=== PATIENT | female | born 2005 | race African-American/Black ===

== ENCOUNTER 2024-08-05 19:00 | Inpatient (IN) | payer OTHER ==
[2024-08-05 19:10] VITALS: BMI 34.8
[2024-08-05 21:00] LABS: BASOPHILS # 0.05 x10^3/uL (0.01-0.08); EOSINOPHIL % 2.9 % (0.7-5.8); EOSINOPHILS # 0.13 x10^3/uL (0.04-0.36); HEMATOCRIT 34.8 % (34.1-44.9); HEMOGLOBIN 11.3 g/dL (11.2-15.7); MCHC 32.5 g/dl (32.2-35.5); MEAN PLT VOLUME 12.1 fl (9.4-12.3); MONOCYTE # 0.46 x10^3/uL (0.24-0.86); MONOCYTE % 10.2 % (4.7-12.5); PLATELET COUNT 253 x10^3/uL (182-369); RDW 14.9 % (12.0-16.2)
[2024-08-05 21:03] LABS: EPI CELLS >36 /uL (0-25.1); HYALINE CASTS 7 /uL (0-3.1); PH,URINE 5.5 (5.0-8.0); URINE APPEARANCE CLOUDY; URINE BACTERIA >9,000 /uL (0-1359); URINE BILIRUBIN NEGATIVE (NEGATIVE); URINE COLOR YELLOW; URINE GLUCOSE (UA) NEGATIVE (NEGATIVE); URINE KETONE TRACE (NEGATIVE); URINE LEUK ESTERASE 2+ (NEGATIVE); URINE NITRITE NEGATIVE (NEGATIVE); URINE PROTEIN TRACE (NEGATIVE); URINE RBC 55 /uL (0-23.9); URINE WBC 188 /uL (0-25.8)
[2024-08-05 21:05] LABS: HCG,QUALITATIVE URINE Negative
[2024-08-05 21:20] LABS: POTASSIUM 3.7 mmol/L (3.5-5.1)
[2024-08-05 21:22] LABS: CALCIUM 9.6 mg/dL (8.5-10.1)
[2024-08-05 21:23] LABS: ALBUMIN 3.8 g/dl (3.4-5.0); BLOOD UREA NITROGEN 6.6 mg/dL (7-18)
[2024-08-05 21:26] LABS: CREATININE 0.6 mg/dL (0.55-1.3)
[2024-08-05 21:27] LABS: BILIRUBIN,TOTAL 0.3 mg/dL (0.2-1); TOT PROT 7.7 g/dl (6.4-8.2)
[2024-08-05] MEDS ORDERED: NITROFURANTOIN MACROCRYSTAL 50 MG CAPSULE (FP) ONE (21:36)
[2024-08-05] MEDS: NITROFURANTOIN MONOHYD/M-CRYST 100 MG CAPSULE PO ONE (22:45)
[2024-08-06 03:47] VITALS: RESP 18
[2024-08-06 07:15] LABS: ABSOLUTE IMMATURE GRANULOCYTES 0.01 x10^3/uL (0.0-0.031); BASOPHILS # 0.06 x10^3/uL (0.01-0.08); EOSINOPHIL % 3.4 % (0.7-5.8); EOSINOPHILS # 0.18 x10^3/uL (0.04-0.36); HEMATOCRIT 34.1 % (34.1-44.9); HEMOGLOBIN 11.1 g/dL (11.2-15.7); MCHC 32.6 g/dl (32.2-35.5); MEAN CELL VOLUME 70.5 fl (79.4-94.8); MEAN PLT VOLUME 11.9 fl (9.4-12.3); MONOCYTE # 0.65 x10^3/uL (0.24-0.86); MONOCYTE % 12.1 % (4.7-12.5); PLATELET COUNT 226 x10^3/uL (182-369); RDW 15.1 % (12.0-16.2)
[2024-08-06 07:23] LABS: Reticulocyte % 0.55 % (0.5-1.7)
[2024-08-06 07:36] LABS: POTASSIUM 3.8 mmol/L (3.5-5.1)
[2024-08-06] MEDS: SODIUM CHLORIDE 1,000 ML IV SCH ×2 (07:40→11:00)
[2024-08-06 08:02] LABS: CALCIUM 9.6 mg/dL (8.5-10.1)
[2024-08-06 08:03] LABS: ALBUMIN 3.7 g/dl (3.4-5.0); MAGNESIUM 2.3 mg/dL (1.8-2.4)
[2024-08-06 08:05] LABS: BLOOD UREA NITROGEN 7.7 mg/dL (7-18); CREATININE 0.6 mg/dL (0.55-1.3)
[2024-08-06 08:07] LABS: BILIRUBIN,TOTAL 0.4 mg/dL (0.2-1); TOT PROT 7.3 g/dl (6.4-8.2)
[2024-08-06 08:08] LABS: PHOSPHOROUS 4.3 mg/dL (2.5-4.9)
[2024-08-06] MEDS: LIDOCAINE 5% TOPICAL PATCH TP SCH (09:22)
[2024-08-06 13:49] VITALS: BP 121/75; PULSE 66; TEMP 98.8
[2024-08-06] MEDS ORDERED: LIDOCAINE PATCH REMOVAL MC SCH (22:00)
== END 2024-08-06 16:59 | disposition home or self-care (01) | DRG 312 ==
LOC: JER 19:00 → JERBED 23:01 → OBSVTOIN 08-06 01:21 → J4W 08-06 03:34
PROVIDERS: ADMIT Hospitalist; ATTEND Internal Medicine
DX: R55 Syncope and collapse (principal); D50.9 Iron deficiency anemia, unspecified
CPT/HCPCS: 36415; 71045-TC-FY; 80053; 81003; 82728; 83540; 83550; 83735; 84100; 84484; 84703; 85025; 93005; 93010; 99285-25; G0378